=== PATIENT | male | born 1960 | race Caucasian/White ===

== ENCOUNTER 2020-04-27 20:03 | Observation (INO) | payer OTHER ==
[2020-04-27 20:51] LABS: #Eosinphils 0.4 thou/uL (0.0-0.7); #Lymphocytes 1.6 thou/uL (1.20-3.40); #Monocytes 1.2 thou/uL (0.11-0.59); #Neutrophils 9.9 thou/uL (1.40-6.50); %Basophils 0.3 % (0.0-1.0); %Eosinophils 2.9 % (0.0-10.0); %Lymphocytes 12.4 % (21.0-51.0); %Monocytes 8.8 % (0.0-10.0); %Neutrophils 75.6 % (42.0-75.0); Hemoglobin 16.1 g/dL (14.0-18.0); Mean Corpuscular HGB CONC 34.8 g/dL (32.0-36.0); Mean Corpuscular Hemoglobin 30.4 pg (27.0-31.0); Mean Corpuscular Volume 87.4 fL (78.0-98.0); Mean Platelet Volume 7.7 fL (7.4-10.4); Platelet Count 244 thou/uL (130-400); Red Blood Cell (RBC) Count 5.31 mill/uL (4.70-6.10); White Blood Cell (WBC) Count 13.1 thou/uL (4.8-10.8)
[2020-04-27] MEDS ORDERED: Nitroglycerin 2% Ointment 1 INCH/1 GM Packet ONE (20:53)
[2020-04-27] MEDS ORDERED: Aspirin Chewable 81 MG TAB ONE (20:53)
--- NOTE | 2020-04-27 20:57 | RAD ---
PORTABLE CHEST ONE VIEW: Date: 04-27-2020 Time: 8:12 p.m. History: Chest pain Comparison: 10-24-12 FINDINGS: The heart size is normal. The lungs are expanded without lobar consolidation, pneumothoraces, or pleu ral effusions. IMPRESSION: No radiographic evidence of acute cardiopulmonary process. POS: OFF
[2020-04-27] MEDS ORDERED: Nitroglycerin 2% Ointment 1 INCH/1 GM Packet TOP SCH (21:00)
[2020-04-27] MEDS ORDERED: Ondansetron PF 4 MG/2 ML Vial IVP PRN (21:00)
[2020-04-27] MEDS ORDERED: Ondansetron ODT 4 MG TAB SL PRN (21:00)
[2020-04-27 21:12] LABS: ALT (SGPT) 13 U/L (8-55); AST (SGOT) 14 U/L (5-34); Albumin 4.1 g/dL (3.4-4.8); Alkaline Phosphatase 112 U/L (40-110); Anion Gap 14 mmol/L (10-20); BUN (Urea Nitrogen) 13 mg/dL (8.4-25.7); Bilirubin, Total 0.9 mg/dL (0.2-1.2); CK (CPK) 83 U/L (30-200); Calc. Creatinine Clearance 0 mL/min (70-130); Calcium 8.9 mg/dL (7.8-10.44); Carbon Dioxide 24 mmol/L (23-31); Chloride 103 mmol/L (98-107); Estimated GFR-MDRD 69; Globulin 2.6 g/dL (2.4-3.5); Glucose 101 mg/dL (80-115); Lipase 14 U/L (8-78); Protein, Total 6.7 g/dL (5.8-8.1); Sodium 137 mmol/L (136-145)
[2020-04-27] MEDS ORDERED: Morphine 4 MG/ML VIAL ONE (21:21)
[2020-04-28 00:17] LABS: Troponin I Less than 0.010 ng/mL (< 0.028)
[2020-04-28 03:29] LABS: Troponin I Less than 0.010 ng/mL (< 0.028)
[2020-04-28] MEDS ORDERED: Regadenoson 0.4 MG/5 ML SYRINGE ONE (08:30)
[2020-04-28 08:40] VITALS: BMI 35.2
[2020-04-28] MEDS ORDERED: Senokot S 8.6-50 MG TAB PO PRN (10:05)
[2020-04-28] MEDS ORDERED: Calcium Carbonate 500 MG ChewTAB PO PRN (10:05)
[2020-04-28] MEDS ORDERED: Bisacodyl 10 MG SUPP PR PRN (10:05)
[2020-04-28] MEDS ORDERED: Guaifenesin DM 100-10/5 ML UDCUP PO PRN (10:05)
[2020-04-28] MEDS ORDERED: Acetaminophen 325 MG TAB PO PRN (10:05)
[2020-04-28] MEDS ORDERED: Ondansetron PF 4 MG/2 ML Vial IVP PRN (10:05)
[2020-04-28] MEDS ORDERED: Non-Formulary Item 1 EACH (Lansoprazole [Lansoprazole] 30 MG Capsule.Dr) PO PRN (10:05)
[2020-04-28] MEDS ORDERED: Dextrose 5 % And 0.9 % NaCl 1,000 ML IV SCH (10:15)
--- NOTE | 2020-04-28 13:50 | NM ---
EXAM: NM Cardiac Stress W EF WF PROVIDED CLINICAL HISTORY: Chest pain. Hypertension and dyslipidemia. COMPARISON: 10/25/2012 FINDINGS: This examination is performed as a pharmacologic myocardial perfusion study after the administration of Lexiscan, IV. No significant reversible defect is seen between the stress and resting acquisitions. Gated images de monstrate normal ventricular wall motion and wall thickening. The calculated left ventricular ejection fraction is 70%. The left ventricular ejection fraction on prior study in 2012 was 60%. IMPRESSION: 1. No significant reversible defect seen to suggest ischemia. 2. LVEF of 70%.
[2020-04-28 15:49] LABS: SARS-CoV-2 MS2 Positive; SARS-CoV-2 N Gene Negative; SARS-CoV-2 S Gene Negative; SARS-CoV-2 by NAA Not Detected (NotDetected); SARS-CoV-2 orf1ab Negative
[2020-04-28 16:02] VITALS: BP 116/75; TEMP 98.1
--- NOTE | 2020-04-28 16:30 | HP ---
REASON FOR ADMISSION: Chest pain. HISTORY OF PRESENTING ILLNESS: The patient gives history of developing chest pain around 3 p.m. yesterday. This lasted until 8 p.m. Prior to this, he had gone to grocery store and had come back. He checked his blood pressure, it was 161/94. Subsequent to this, the patient developed chest pain. He has not taken any aspirin. This got resolved by itself. The patient later came to emergency room to have further workup for the same as he got concerned. No complaints of fever or myalgias. The patient admits to not taking lisinopril on Monday. He has had a prior exercise stress test done 10 years back. He has dry cough, which has been present for many years now. PAST MEDICAL AND SURGICAL HISTORY: Hypertension, dyslipidemia, toe surgery, prior colonoscopy which did not reveal any abnormality, prior exercise stress test done more than 10 years ago was normal. CURRENT MEDICATIONS: The patient takes; 1. Lipitor 10 mg p.o. daily. 2. Metoprolol extended release 25 mg daily. 3. Lisinopril 20 mg daily. ALLERGIES: NO KNOWN DRUG ALLERGIES. PERSONAL HISTORY: Does not abuse alcohol or drugs. No history of smoking. The patient is retired and was [employer] previously. 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 Lives with his . FAMILY HISTORY: Mother at the age of 52. She had cancer, which she does not know the exact primary. Father of natural causes at the age of 86 years. CODE STATUS: Full. Power of district attorney is his . REVIEW OF SYSTEMS: CONSTITUTIONAL: Negative for weight loss or gain, ability to conduct usual activities. SKIN: Negative for rash, itching. EYES: Negative for double vision, pain. ENT/MOUTH: Negative for nose bleeding, neck stiffness, pain, tenderness. CARDIOVASCULAR: Negative for palpitations, dyspnea on exertion, orthopnea. RESPIRATORY: Negative for shortness of breath, wheezing, cough, hemoptysis, fever or night sweats. GASTROINTESTINAL: Negative for poor appetite, abdominal pain, heartburn, nausea, vomiting, constipation, or diarrhea. GENITOURINARY: Negative for urgency, frequency, dysuria, nocturia. MUSCULOSKELETAL: Negative for pain, swelling. NEUROLOGIC/PSYCHIATRIC: Negative for anxiety, depression. ALLERGY/IMMUNOLOGIC: Negative for skin rash, bleeding tendency. PHYSICAL EXAMINATION: GENERAL: The patient is a 60-year-old male, who is currently not in any acute distress. VITAL SIGNS: Blood pressure 142/90, pulse 90 per minute, respiratory rate 16 per minute, temperature 99 degrees on arrival, saturating 96% on room air. NECK: Supple. No elevated JVD. HEENT: Eyes; extraocular muscles are intact. Pupils reacting to light. Oral cavity, mucous membranes are moist. No exudates or congestion. CARDIOVASCULAR: S1 and S2 heard, regular rhythm. RESPIRATORY: Air entry 2+ bilateral. No rales or rhonchi. ABDOMEN: Soft. Bowel sounds heard. No tenderness, rigidity, or guarding. EXTREMITIES: No peripheral edema or calf tenderness. VASCULAR: Peripheral pulses 2+ bilateral. No ischemic ulcerations or gangrene. CENTRAL NERVOUS SYSTEM: No gross focal motor deficits noted. The patient is alert, awake, oriented well. PSYCHIATRIC: The patient's mood is euthymic. No hallucinations or delusions. IMAGING STUDIES: EKG done shows sinus rhythm at 89 beats per minute. There is questionable Q-wave seen in V1 and V2. Chest x-ray done shows no acute cardiopulmonary abnormality. Nuclear stress test done showed ejection fraction of 70%. No significant reversible defect seen to suggest ischemia. LABORATORY DATA: Troponin x3 negative. COVID-19 PCR was negative. Electrolytes stable. BUN 13, creatinine 1.0, serum glucose 101. White count of 13, hemoglobin and hematocrit 16 and 46, platelet count 244. CLINICAL IMPRESSION AND PLAN: The patient will be shortly discharged to home. This is a same-day admit and discharge summary. The patient initially came in for chest pain. He has had complete workup done to rule out acute coronary syndrome. Three sets of troponin were negative. Nuclear stress test is negative as well. He is hemodynamically stable and will be shortly discharged to home. He was counseled to be compliant with his medication for hypertension. Job ID: [id number] [facility] [place] [facility]
[2020-04-28] MEDS ORDERED: Metoprolol Tartrate 25 MG TAB PO SCH (21:00)
[2020-04-28] MEDS ORDERED: Famotidine 20 MG TAB PO SCH (21:00)
[2020-04-28] MEDS ORDERED: Tamsulosin HCl 0.4 MG CAP PO SCH (21:00)
[2020-04-28] MEDS ORDERED: Atorvastatin Calcium 40 MG TAB PO SCH (21:00)
[2020-04-29] MEDS ORDERED: Aspirin 325 mg Enteric Coated Tablet PO SCH (09:00)
[2020-04-29] MEDS ORDERED: Enoxaparin Sodium 40 MG/0.4 ML SYRINGE SC SCH (09:00)
--- NOTE | 2020-04-30 14:51 | STRESS ---
Acquisition Time: 2020-04-28 11:32:41 Total Exercise Time: 00:01:00 Test Indications: CHEST PAIN Medications: Protocol: LEXISCAN Max HR: 083 BPM 52% of Pred: 159 BPM Max BP: 126/070 mmHG Max Work Load: 1.0 METS RESTING ECG: NORMAL SINUS RHYTHM AT 72 BPM SYMPTOMS: NONE NORMAL BLOOD PRESSURE RESPONSE ECTOPY: NONE ECG RESPONSE: NO SIGNIFICANT CHANGES INTERPRETATION: NEGATIVE ECG/AWAIT NUCLER IMAGES FOR DEFINITIVE DIAGNOSIS Confirmed by DR. Lizzie ARTEAGA ([id number]), state editor INGRID CASTLE ([id number]) on 04/30/2020 2:50:48 PM Referred By: MD Kemar BETTS Confirmed By:DR. Lizzie ARTEAGA
== END 2020-04-28 16:40 | disposition home or self-care (01) ==
LOC: ERS 20:03 → ERHOLD 21:55 → INTOOBSV 21:55 → 2SW 04-28 08:02
PROVIDERS: ADMIT Family Medicine; ATTEND Family Medicine
DX: R07.9 Chest pain, unspecified (principal); I10 Essential (primary) hypertension; E78.5 Hyperlipidemia, unspecified; Z79.899 Other long term (current) drug therapy; Z20.828 Contact with and (suspected) exposure to other viral communicable diseases
CPT/HCPCS: 36415; 71045; 78452; 80053; 82550; 83690; 83880; 84484; 85025; 85379; 87635; 93005; 93017; 93306; 96361; 96374; A9500; J2270; J2785; U0003

== ENCOUNTER 2024-04-22 14:15 | Outpatient (CLI) | payer MEDICARE, OTHER | END 2024-04-22 14:16 | disposition home or self-care (01) | LOC: CT 14:15 | PROVIDERS: ATTEND Orthopaedic Surgery | DX: M17.11 Unilateral primary osteoarthritis, right knee (principal) ==

== ENCOUNTER 2024-04-24 09:48 | Outpatient (CLI) | payer MEDICARE, OTHER ==
[2024-04-24 11:06] LABS: #Basophils 0.07 10x3/uL (0.0-0.2); %Basophils 0.8 % (0.0-1.0); %Lymphocytes 28.7 % (21.0-51.0); %Monocytes 7.6 % (0.0-10.0); %Neutrophils 59.1 % (42.0-75.0); Mean Corpuscular HGB CONC 33.3 g/dL (32.0-36.0); Mean Corpuscular Hemoglobin 29.8 pg (27.0-31.0); Mean Corpuscular Volume 89.5 fL (78.0-98.0); Mean Platelet Volume 10.6 fL (7.4-10.4); Platelet Count 241 10x3/uL (130-400); RBC Distribution Width 13.2 % (11.5-14.5)
[2024-04-24 11:24] LABS: Prothrombin Time 12.7 sec (12.0-14.7)
[2024-04-24 11:28] LABS: Anion Gap 12 mmol/L (10-20); BUN (Urea Nitrogen) 13 mg/dL (8.4-25.7); Calc. Creatinine Clearance 0 mL/min (70-130); Calcium 9.8 mg/dL (7.8-10.44); Carbon Dioxide 26 mmol/L (23-31); Chloride 104 mmol/L (98-107); Estimated GFR 69; Glucose 94 mg/dL (80-115); Potassium 4.4 mmol/L (3.5-5.1); Sodium 138 mmol/L (136-145)
[2024-04-24 13:47] LABS: Bilirubin Negative (Negative); Blood, Urine Negative (Negative); Clarity Clear (Clear); Glucose, Urine (Dipstick) Normal (Negative); Ketone, Urine Negative (Negative); Leukocyte Negative Leu/uL (Negative); Nitrite Negative (Negative); Protein, Urine (Dipstick) Negative (Neg-Trace); Specific Gravity, Urine 1.005 (1.002-1.036); Urobilinogen Normal mg/dL (Less than 2); pH, Urine 6.5 (5.0-9.0)
== END 2024-04-24 09:49 | disposition home or self-care (01) ==
LOC: LABBT 09:48
PROVIDERS: ATTEND Orthopaedic Surgery
DX: Z01.818 Encounter for other preprocedural examination (principal); M17.0 Bilateral primary osteoarthritis of knee
CPT/HCPCS: 71046; 80048; 81003; 85025; 85610; 87081; 93005; 93010

== ENCOUNTER 2024-04-29 10:07 | Observation (INO) | payer MEDICARE, OTHER ==
[2024-04-29] MEDS ORDERED: Vancomycin (BATCH) 2 GM in Premix 1 BAG IVPB SCH (10:45)
[2024-04-29] MEDS ORDERED: CEFAZOLIN 2 GM VIAL ONE (10:55)
[2024-04-29] MEDS ORDERED: Sodium Chloride 0.9% 200 ML ONE (10:55)
[2024-04-29] MEDS ORDERED: Lidocaine 1% MPF 2 ML VIAL ONE (10:55)
[2024-04-29] MEDS ORDERED: Tranexamic Acid 1,000 MG/10 ML VIAL ONE ×2 (10:55→15:11)
[2024-04-29] MEDS ORDERED: Bupivacaine PF 0.5% 30 ML VIAL ONE (11:37)
[2024-04-29] MEDS ORDERED: Midazolam HCl 2 mg/2 ml Vial ONE (11:37)
[2024-04-29] MEDS ORDERED: fentaNYL 50 mcg/mL 1 mL Vial ONE (11:37)
[2024-04-29] MEDS ORDERED: fentaNYL 50 mcg/mL 1 mL Vial SLOW IVP PRN (12:10)
[2024-04-29] MEDS ORDERED: Zolpidem Tartrate 5 MG TAB PO PRN ×2 (12:15→14:37)
[2024-04-29] MEDS ORDERED: Ondansetron PF 4 MG/2 ML Vial IVP PRN ×2 (12:15→14:37)
[2024-04-29] MEDS ORDERED: Promethazine HCl 25 MG/ML VIAL IM PRN ×2 (12:15→14:37)
[2024-04-29] MEDS ORDERED: traMADol HCl 50 MG TAB PO PRN ×2 (12:15)
[2024-04-29] MEDS ORDERED: Ropivacaine 0.2% 550 ML 550 ML NERVE BLCK SCH (12:15)
[2024-04-29] MEDS ORDERED: Bupivacaine 0.25% HCL 30 ML VIAL ONE (12:44)
[2024-04-29] MEDS ORDERED: Lidocaine 1% PF 5 ML VIAL ONE (12:45)
[2024-04-29] MEDS ORDERED: PROPOFOL 40 ML ONE (12:45)
[2024-04-29] MEDS ORDERED: fentaNYL PF 100 MCG/2 ML SYRINGE ONE ×2 (12:45→13:35)
[2024-04-29] MEDS ORDERED: Ondansetron PF 4 MG/2 ML Vial ONE (12:45)
[2024-04-29] MEDS ORDERED: Dexamethasone 4 mg/ml Vial ONE (12:45)
[2024-04-29] MEDS ORDERED: PHENYLEPHRINE-NS 100 MCG/ML 10 ML SYRINGE ONE (12:46)
[2024-04-29] MEDS ORDERED: Lidocaine 1% (PF) 30 ML VIAL ONE (13:09)
[2024-04-29] MEDS ORDERED: methylPREDNISolone Acetate 40 mg/ml Vial ONE (13:09)
[2024-04-29] MEDS ORDERED: ePHEDrine Sulfate 50 MG/10 ML VIAL ONE (13:13)
[2024-04-29] MEDS ORDERED: Bupivacaine HCl 0.5%/Epinephrine 1:200,000/PF 30 ml Vial ONE (13:14)
[2024-04-29] MEDS ORDERED: Glycopyrrolate 0.2 MG/ML 5 ML SYRINGE ONE (13:14)
[2024-04-29] MEDS ORDERED: Vasopressin 20 UNITS/ML VIAL ONE (13:20)
[2024-04-29] MEDS ORDERED: diphenhydrAMINE 25 MG CAP PO PRN (14:37)
[2024-04-29] MEDS ORDERED: Acetaminophen 325 MG TAB PO PRN (14:37)
[2024-04-29] MEDS ORDERED: Tranexamic Acid 1,000 MG in Sodium Chloride 0.9% 100 ML IVPB SCH (14:45)
[2024-04-29] MEDS ORDERED: Pantoprazole DR 40 MG TAB PO PRN (14:50)
[2024-04-29] MEDS ORDERED: Fentanyl 250 MCG/5 ML VIAL ONE (15:11)
[2024-04-29] MEDS ORDERED: HYDROmorphone 2 MG/ML VIAL ONE (15:11)
[2024-04-29] MEDS: Sodium Chloride 0.9% 1,000 ML IV SCH (16:00)
[2024-04-29 16:16] VITALS: BMI 34.0
[2024-04-29] MEDS: Ketorolac Tromethamine 30 MG (1 mL) VIAL IVP SCH (17:54)
[2024-04-29] MEDS: CEFAZOLIN 2 GM in Sodium Chloride 0.9% 100 ML IVPB SCH (18:09)
[2024-04-29] MEDS: Atorvastatin Calcium 40 MG TAB PO SCH (21:06)
[2024-04-29] MEDS: Aspirin 81 mg Enteric Coated Tablet PO SCH (21:06)
[2024-04-29] MEDS: Tamsulosin HCl 0.4 MG CAP PO SCH (21:07)
[2024-04-29] MEDS: HYDROcodone/Acetaminophen 10/325 mg Tablet PO PRN (21:10)
[2024-04-30] MEDS: Metoprolol Tartrate 25 MG TAB PO SCH (00:15)
[2024-04-30] MEDS: Vancomycin (BATCH) 2 GM in Premix 1 BAG IVPB SCH (00:16)
[2024-04-30 08:19] LABS: Hematocrit 41.9 % (42.0-52.0); Hemoglobin 14.1 g/dL (14.0-18.0); Mean Corpuscular HGB CONC 33.7 g/dL (32.0-36.0); Mean Corpuscular Hemoglobin 30.3 pg (27.0-31.0); Mean Corpuscular Volume 90.1 fL (78.0-98.0); Mean Platelet Volume 9.7 fL (7.4-10.4); Platelet Count 255 10x3/uL (130-400); RBC Distribution Width 13.2 % (11.5-14.5); Red Blood Cell (RBC) Count 4.65 mill/uL (4.70-6.10)
[2024-04-30] MEDS: HYDROcodone/Acetaminophen 10/325 mg Tablet PO PRN (10:01)
[2024-04-30] MEDS: Losartan 25 MG TAB PO SCH (10:02)
[2024-04-30] MEDS: Ferrous Gluconate 324 MG TAB PO SCH (10:02)
[2024-04-30] MEDS: Multivitamin W/ Minerals 1 TAB PO SCH (10:02)
[2024-04-30] MEDS: Senokot S 8.6-50 MG TAB PO SCH (10:04)
[2024-04-30 10:58] VITALS: BP 132/71; TEMP 97.7
== END 2024-04-30 15:52 | disposition home or self-care (01) ==
LOC: SDC 10:07 → SURG B 16:13 → SDC 04-30 09:34
PROVIDERS: ADMIT Orthopaedic Surgery; ATTEND Orthopaedic Surgery
PROC: 0SRC0JZ Replacement of Right Knee Joint with Synthetic Substitute, Open Approach (ICD-10-PCS; principal; 2024-04-29)
PROC: 0S9D3ZZ Drainage of Left Knee Joint, Percutaneous Approach (ICD-10-PCS; 2024-04-29)
DX: M17.0 Bilateral primary osteoarthritis of knee (principal); I10 Essential (primary) hypertension; E78.00 Pure hypercholesterolemia, unspecified; Z79.899 Other long term (current) drug therapy
CPT/HCPCS: 0055T; 20610; 27447; 64447; 36415; 85027; A4306; C1713; C1776; C1889; J0665; J1030; J1100; J1170; J1885; J2001; J2250; J2405; J2704; J2795; J3010; J3370; J7030

== ENCOUNTER 2025-05-21 08:16 | Outpatient (CLI) | payer MEDICARE, OTHER ==
[2025-05-21 10:19] LABS: #Basophils 0.07 10x3/uL (0.0-0.2); #Eosinophils 0.28 10x3/uL (0.0-0.7); #Monocytes 0.73 10x3/uL (0.11-0.59); #Neutrophils 5.02 10x3/uL (1.40-6.50); %Basophils 0.8 % (0.0-1.0); %Eosinophils 3.2 % (0.0-10.0); %Lymphocytes 29.4 % (21.0-51.0); %Monocytes 8.4 % (0.0-10.0); %Neutrophils 57.7 % (42.0-75.0); Hematocrit 44.7 % (42.0-52.0); Hemoglobin 14.7 g/dL (14.0-18.0); Mean Corpuscular Hemoglobin 28.7 pg (27.0-31.0); Mean Corpuscular Volume 87.3 fL (78.0-98.0); Platelet Count 285 10x3/uL (130-400); Red Blood Cell (RBC) Count 5.12 mill/uL (4.70-6.10); White Blood Cell (WBC) Count 8.70 10x3/uL (4.8-10.8)
[2025-05-21 10:44] LABS: INR-International Normal Ratio 1.0; Prothrombin Time 13.4 sec (12.0-14.7)
[2025-05-21 10:47] LABS: Anion Gap 13 mmol/L (10-20); BUN (Urea Nitrogen) 10 mg/dL (8.4-25.7); Calc. Creatinine Clearance 0 mL/min (70-130); Calcium 9.2 mg/dL (7.8-10.44); Carbon Dioxide 24 mmol/L (23-31); Chloride 106 mmol/L (98-107); Glucose 110 mg/dL (80-115); Potassium 4.0 mmol/L (3.5-5.1); Sodium 139 mmol/L (136-145)
[2025-05-21 12:59] LABS: Bacteria/HPF None Seen HPF (None Seen); Glucose, Urine (Dipstick) Normal (Negative); Leukocyte Negative Leu/uL (Negative); Protein, Urine (Dipstick) Negative (Neg-Trace); RBC/HPF 0-3 HPF (0-3); Specific Gravity, Urine 1.007 (1.002-1.036); WBC/HPF 0-3 HPF (0-3)
== END 2025-05-21 08:17 | disposition home or self-care (01) ==
LOC: LABBT 08:16
PROVIDERS: ATTEND Orthopaedic Surgery
DX: Z01.818 Encounter for other preprocedural examination (principal); M17.12 Unilateral primary osteoarthritis, left knee
CPT/HCPCS: 71046; 80048; 81001; 85025; 85610; 87081